=== PATIENT | female | born 2000 | race Caucasian/White ===

== ENCOUNTER 2021-02-02 13:12 | Emergency (ER) | payer OTHER, SELFPAY ==
[2021-02-02 13:32] VITALS: BP 114/73; PULSE 83; RESP 16; TEMP 36.7; O2SAT 98; BMI 25.8
--- NOTE | 2021-02-02 13:47 | US_ITS ---
WS: [id number] INDICATION: Appendicitis TECHNIQUE: Ultrasound right lower quadrant FINDINGS: Ultrasound right lower quadrant performed. Gas-filled bowel loops visualized. Appendix is n ot visualized. No visualized noncompressible bowel loops. No free fluid. US/US appendix [id number] IMPRESSION: Gas-filled bowel loops visualized in the right lower quadrant. Appe ndix is not visualized.
--- NOTE | 2021-02-02 13:49 | W.ED.FEMALGU ---
HPI - Female Genitourinary General: Chief complaint: Urogenital-Female Stated complaint: right lower abd pain, 15 weeks Time Seen by Provider: 02/02/21 13:38 Source: patient Mode of arrival: ambulatory Limitations: no limitations History of Present Illness: HPI Narrative: 20-year-old female who is currently 15 weeks . She states she has had nausea and vomiting throughout the but states today she started having some right side cramping with this. States pain is towards the right side upper abdomen and rates it a 5 out of 10. Denies any fever. Denies any worsening improving factors. Denies any worsening factors. She has no bleeding or discharge. Associated symptoms: Reports abdominal pain and nausea; Deny headache(s) Date of Last Menstrual Period: 10/08/20 Review of Systems Const: Denies: fever(s), chills, body aches or change in appetite Eyes: Denies: blurry vision or eye discomfort ENMT: Denies: throat pain or dental pain Card: Denies: chest pain Resp: Denies: dyspnea GI: Reports: abdominal pain, nausea and vomiting : Denies: dysuria Musc: Denies: neck pain or back pain Skin/Breast: Denies: rash Neuro: Denies: headache(s) Psych: Denies: depression Izaiah/Lymph: Denies: easy bruising All/Imm: Denies: urticaria [facility] ED Female Reproductive History: Date of last menstrual period: 10/08/20 Physical Exam Const: COMMON NORMALS: no acute distress, patient oriented x3 and healthy appearing HENMT: COMMON NORMALS: normocephalic and atraumatic HEAD & SCALP: normocephalic and atraumatic Eye: COMMON NORMALS: Equal, round and reactive pupils present and EOMs intact bilaterally PUPIL: Yes Equal, round and reactive pupils present Neck/C-Spine: COMMON NORMALS: full ROM and supple Chest: COMMONS NORMALS: normal inspection of the chest and normal palpation of entire chest wall Resp: COMMON NORMALS: normal respiratory effort, No retractions, No use of accessory muscles and clear to auscultation bilaterally AUSCULTATION: clear to auscultation bilaterally Cardio: COMMON NORMALS: regular rate, regular rhythm and No murmurs present (Cardio) RATE: regular rate RHYTHM: regular rhythm GI: COMMON NORMALS: Normal to inspection, nondistended, normoactive bowel sounds present, Soft to palpation, non-tender and no masses PALPATION: Yes Soft to palpation OTHER: no rlq tenderness no rebound Extremity: COMMON NORMALS: normal to inspection and full ROM Neuro: COMMON NORMALS: patient oriented x3, moves all extremities and no focal motor deficits Psych: COMMON NORMALS: mental status grossly normal, Normal thought process present and cooperative THOUGHT PROCESS: Normal thought process present Skin: COMMON NORMALS: no rashes or lesions noted and no wounds GENERAL SKIN EXAM: no rashes or lesions noted Course Vital Signs: Vital signs: Vital Signs Temperature 98.1 F 02/02/21 13:32 Pulse Rate 83 02/02/21 13:32 Respiratory Rate 14 02/02/21 17:03 Blood Pressure 114/73 02/02/21 13:32 Pulse Oximetry 99 02/02/21 17:03 MDM - Female MDM Narrative: Medical decision making narrative: Patient presents here with flank pain patient likely has a kidney stone. She had minimal dilatation of her ureter and mild hydronephrosis on ultrasound. Spoke to Dr. Jackson and will place patient on pain meds. We will send her home with a urine strainer as well. She feels much improved here and is currently pain-free. Patient feels better after hydration as well. She is to follow-up with her OB in 1 to 2 days return to ER if worsening. She understands and agrees to this plan. Lab Data: Labs: Lab Results 02/02/21 02/02/21 02/02/21 Range/Units 13:54 13:54 15:00 WBC 12.6 H (4.0-10.0) 10^3/ uL RBC 3.93 L (4.1-5.3) 10^6/u L Hgb 12.3 (11.5-15.3) g/dL Hct 34.1 L (37.0-47.0) % MCV 86.8 (81-99) fL MCH 31.3 (28.0-34.0) pg MCHC 36.1 H (30.0-36.0) g/dL RDW 11.8 L (12.1-15.1) % Plt Count 222 (130-400) 10^3/c mm MPV 10.6 H (7.4-10.4) fL Neut % (Auto) 87.2 % Lymph % (Auto) 8.8 % [place] % (Auto) 3.4 % Eos % (Auto) 0.0 % Baso % (Auto) 0.2 % Neut # (Auto) 10.96 H (1.8-7.7) 10^3/u L Lymph # (Auto) 1.1 (0.8-4.8) 10^3/u L [place] # (Auto) 0.4 (0.2-0.9) 10^3/u L Eos # (Auto) 0.0 (0.0-0.8) 10^3/u L Baso # (Auto) 0.0 (0.0-0.1) 10^3/u L Nucleated RBC % (a uto) 0 % Nucleated RBCs # 0.0 /100WBC Sodium 135 L (136-145) mmol/L Potassium 3.1 L (3.5-5.1) mmol/L Chloride 103 (98-107) mmol/L Carbon Dioxide 14 L (22-29) mmol/L Anion Gap 21.1 H (5-19) BUN 4 L (6-20) mg/dL Creatinine 0.6 (0.5-0.9) mg/dL GFR Calculation 125.0 (90-130) mL/min Glucose 138 H (65-115) mg/dL Calculated Osmolal ity 279 L (285-295) mOsm/k g Calcium 8.5 (8.5-10.5) mg/dL Total Bilirubin 0.5 (0.15-1.2) mg/dL AST 18 (0-32) U/L ALT 14 (0-33) U/L Alkaline Phosphata se 45 (35-105) IU/L Total Protein 6.9 (6.6-8.7) g/dL Albumin 4.0 (3.5-5.2) g/dL Globulin 2.9 (1.3-4.6) g/dL Lipase 22 (13-60) U/L Urine Color Yellow (Yellow) Urine Appearance Cloudy (CLEAR) Urine pH 5 (5-7) Ur Specific Gravit y 1.020 (1.005-1.030) Urine Protein Trace (Negative) Urine Glucose (UA) 1+ (Normal) Urine Ketones 3+ H (Negative) Urine Blood 3+ H (Negative) Urine Nitrate Negative (Negative) Urine Bilirubin Neg (Negative) Urine Urobilinogen Norm (Negative) mg/dL Ur Leukocyte Alejandra ase Negative (Negative) Urine RBC Too numerous to c nt H (0-2) /hpf Urine WBC 0-4 H (0-5) /hpf Ur Squamous Epith Cells 0-4 H (0-5) /hpf Amorphous Sediment Not Reportable Urine Bacteria 2+ H (NONE) /hpf Discharge Plan Discharge Patient Disposition: Home Clinical Impression: Kidney stone Vomiting Qualifiers: Vomiting type: unspecified Vomiting Intractability: non-intractable Nausea presence: with nausea Qualified Code(s): R11.2 - Nausea with vomiting, unspecified Condition: Stable Prescriptions: New hydrocodone-acetaminophen 5-325 mg tablet 1 tab PO Q6H PRN (Reason: pain) Qty: 14 RF: 0 cephalexin 500 mg capsule 500 mg PO TID 7 Days Qty: 21 RF: 0 Reglan 10 mg tablet 10 mg PO Q6H PRN (Reason: nausea and vomiting) Qty: 20 RF: 0 No Action progesterone micronized 200 mg capsule 200 mg PO BEDTIME MDD see pharmacy comment RF: 0 Discharge Orders: Discharge ED (Routine); Ordered 02/02/21 Ordered By: Mandeep Carvalho Referrals: Jeannie Melchor MD [Primary Care Provider] - Discharge Diet: Advance as tolerated Discharge Activity: Resume usual activity Patient Instructions: Opioid Safety Coding Level of Care Code ED Gold Assayer for Chg Fwd Exam Comprehensive
[2021-02-02 14:09] LABS: Basophils % 0.2 %; Hematocrit 34.1 % (37.0-47.0); Hemoglobin 12.3 g/dL (11.5-15.3); Lymphocytes # 1.1 10^3/uL (0.8-4.8); Lymphocytes % 8.8 %; Mean Corpuscular HGB Conc 36.1 g/dL (30.0-36.0); Mean Corpuscular Hemoglobin 31.3 pg (28.0-34.0); Mean Corpuscular Volume 86.8 fL (81-99); Mean Platelet Volume 10.6 fL (7.4-10.4); Monocytes # 0.4 10^3/uL (0.2-0.9); Monocytes % 3.4 %; Neutrophils # 10.96 10^3/uL (1.8-7.7); Neutrophils % 87.2 %; Nucleated Red Blood Cells % 0 %; Platelet Count 222 10^3/cmm (130-400); Red Blood Count 3.93 10^6/uL (4.1-5.3); Red Cell Distribution Width 11.8 % (12.1-15.1); White Blood Count 12.6 10^3/uL (4.0-10.0)
[2021-02-02 14:37] LABS: Alanine Aminotransferase 14 U/L (0-33); Alkaline Phosphatase 45 IU/L (35-105); Anion Gap 21.1 (5-19); Aspartate Amino Transferase 18 U/L (0-32); Blood Urea Nitrogen 4 mg/dL (6-20); Calcium 8.5 mg/dL (8.5-10.5); Carbon Dioxide 14 mmol/L (22-29); Chloride 103 mmol/L (98-107); Globulin 2.9 g/dL (1.3-4.6); Glucose 138 mg/dL (65-115); Lipase 22 U/L (13-60); Osmolality Calculated 279 mOsm/kg (285-295); Potassium 3.1 mmol/L (3.5-5.1); Sodium 135 mmol/L (136-145); Total Bilirubin 0.5 mg/dL (0.15-1.2); Total Protein 6.9 g/dL (6.6-8.7)
[2021-02-02] MEDS: sodium chloride 0.9% 1,000 ML 999 ML IV ×3 (15:23→17:06)
[2021-02-02] MEDS: diphenhydrAMINE 50 mg/mL SDV 1mL IVP (15:23)
[2021-02-02] MEDS: metoclopramide 5 mg/mL SDV 2 mL 10 MG IVP (15:23)
--- NOTE | 2021-02-02 15:34 | PC.NURSE ---
pt sleeping at this time. still in vertical.
--- NOTE | 2021-02-02 15:37 | PC.NURSE ---
normal saline running at this time
[2021-02-02 15:47] LABS: Add Urine Microscopic? YES; Bilirubin Urine Neg (Negative); Blood Urine 3+ (Negative); Glucose Urine UA 1+ (Normal); Ketones Urine 3+ (Negative); Leukocyte Esterase Urine Negative (Negative); Nitrate Urine Negative (Negative); Protein Urine Trace (Negative); Urine Appearance Cloudy (CLEAR); Urine Color Yellow (Yellow); Urobilinogen Urine Norm (Negative); pH Urine 5 (5-7)
[2021-02-02 15:51] LABS: RBC Urine TOO NUMEROUS TO CNT /hpf (0-2); Squamous Epithelial Cell Urine 0-4 /hpf (0-5); WBC Urine 0-4 /hpf (0-5)
[2021-02-02 15:52] LABS: Add Urine Culture? Yes; Bacteria Urine 2+ /hpf
--- NOTE | 2021-02-02 16:02 | USR_ITS ---
PROCEDURE INFORMATION: Exam: US Retroperitoneal; Complete; Kidneys and Bladder Exam date and time: 02/02/2021 4:02 PM Age: 20 years old Clinical indication: Abdominal pain; Flank; Right; ; Additional info: Right flank pain TECHNIQUE: Imaging protocol: Real-time ultrasound of the retroperitoneum with image documentation. Complete exam focused on the kidneys and bladder. COMPARISON: US Abdomen* [id number] 01/15/2017 9:21 AM FINDINGS: Right kidney: Unremarkable right renal size. Unremarkable right renal parenchyma. Mild dilation of the right renal collecting system. Small echogenic foci within right renal upper pole calices which may represent small stones. No perinephric fluid collection. Left kidney: Normal. No stones. No hydronephrosis. Urinary bladder: Unremarkable. US/US renal BI* [id number] IMPRESSION: Mild dilation of the right renal collecting system. Suspicion for small echogenic nonobstructing stones within the intrarenal collecting system. A distal obstructing lesion is not confidently visualized sonographically but cannot be excluded.
[2021-02-02 17:03] VITALS: RESP 14; O2SAT 99
[2021-02-02] MEDS: morphine 4 mg/mL SDV 1 mL IVP (17:03)
[2021-02-02 18:11] VITALS: BP 129/70; PULSE 78; RESP 14; TEMP 36.8; O2SAT 99
== END 2021-02-02 18:00 | disposition home or self-care (01) ==
PROVIDERS: Emergency Provider Emergency Medicine; PCP Family Medicine
DX: O26.892 Other specified pregnancy related conditions, second trimester (principal); N20.0 Calculus of kidney; R11.2 Nausea with vomiting, unspecified; Z3A.15 15 weeks gestation of pregnancy
CPT/HCPCS: 76705; 76770; 80053; 81001; 83690; 85025; 87086; 96361; 96374; 96375; 99284; J1200; J2270; J2765; J7030

== ENCOUNTER 2021-07-21 14:47 | Emergency (ER) | payer OTHER, SELFPAY ==
[2021-07-21 15:11] VITALS: BP 127/88; PULSE 80; RESP 16; TEMP 36.7; O2SAT 98
--- NOTE | 2021-07-21 15:11 | ECG_ITS ---
[facility] Test Date: 2021-07-21 Pat Name: Norma Canales Department: Room: Gender: Female Customs Broker: : 2000 Requested By: Lana Quintanilla Order Number: [id number] Reading MD: MAGALI TAYLOR Measurements Intervals [place] Rate: 80 P: 61 [place]: 158 QRS: 46 QRSD: 88 T: 29 QT: 354 QTc: 408 Interpretive Statements SINUS RHYTHM WITH SINUS ARRHYTHMIA No previous ECG available for comparison Electronically Signed On 07-22-2021 17:47:09 STEEL FIXER by MAGALI TAYLOR [id number]
--- NOTE | 2021-07-21 15:11 | XR_ITS ---
WS: [id number] PORTABLE CHEST HISTORY: chest pain COMPARISON: None available. Lungs are clear and well expanded. No pleural effusion or pneumothorax. Cardiac size: Normal. Mediastinum/Aorta: Normal mediastinum. No osseous abnormality seen. XR/XR chest 1V portable [id number] IMPRESSION: Unremarkable portable chest.
[2021-07-21 15:53] VITALS: BP 127/84; PULSE 88; RESP 21; O2SAT 97
--- NOTE | 2021-07-21 16:04 | PC.NURSE ---
PATIENT PLACED ON CONTINUOUS BEDSIDE CARDIAC, O2 AND BP MONITOR
[2021-07-21 16:07] LABS: Basophils % 0.3 %; Eosinophils # 0.2 10^3/uL (0.0-0.8); Eosinophils % 1.7 %; Hematocrit 39.6 % (37.0-47.0); Hemoglobin 13.6 g/dL (11.5-15.3); Lymphocytes # 1.4 10^3/uL (0.8-4.8); Lymphocytes % 14.9 %; Mean Corpuscular HGB Conc 34.3 g/dL (30.0-36.0); Mean Corpuscular Hemoglobin 32.6 pg (28.0-34.0); Mean Platelet Volume 10.1 fL (7.4-10.4); Monocytes # 0.5 10^3/uL (0.2-0.9); Monocytes % 5.6 %; Neutrophils # 7.02 10^3/uL (1.8-7.7); Neutrophils % 76.7 %; Nucleated Red Blood Cells % 0 %; Platelet Count 261 10^3/cmm (130-400); Red Blood Count 4.17 10^6/uL (4.1-5.3); Red Cell Distribution Width 13.2 % (12.1-15.1); White Blood Count 9.2 10^3/uL (4.0-10.0)
[2021-07-21 16:36] LABS: D Dimer 1.05 ug/mIFEU (0-0.59)
[2021-07-21 16:37] LABS: Anion Gap 16.5 (5-19); Blood Urea Nitrogen 10 mg/dL (6-20); Calcium 9.6 mg/dL (8.5-10.5); Carbon Dioxide 24 mmol/L (22-29); Chloride 101 mmol/L (98-107); Creatinine Clr Calc Pharmacy 122.0519; Glomerular Filtration Rate 89.7 mL/min (90-130); Glucose 81 mg/dL (65-115); Osmolality Calculated 284 mOsm/kg (285-295); Potassium 3.5 mmol/L (3.5-5.1); Sodium 138 mmol/L (136-145)
[2021-07-21 16:59] VITALS: BP 131/78; PULSE 86; RESP 17; O2SAT 98
--- NOTE | 2021-07-21 17:11 | CTR_ITS ---
PROCEDURE INFORMATION: Exam: CTA Chest With Contrast Exam date and time: 07/21/2021 5:11 PM Age: 20 years old Clinical indication: Shortness of breath; Patient HX: SOB; Additional info: Eval for pe TECHNIQUE: Imaging protocol: Computed tomographic angiography of the chest with contrast. 3D rendering (Not supervised by radiologist): MIP and/or 3D reconstructed images were created by the technologist. Radiation optimization: All CT scans at this facility use at least one of these dose optimization techniques: automated exposure control; mA and/or kV adjustment per patient size (includes targeted exams where dose is matched to clinical indication); or iterative reconstruction. Contrast material: OMNI 350; Contrast volume: 78 ml; Contrast route: INTRAVENOUS (IV); COMPARISON: CR XR chest 1V portable [id number] 07/21/2021 3:22 PM RADIATION DOSE METRICS: Total DLP (mGy-cm): 525.03 FINDINGS: Pulmonary arteries: No filling defects in the pulmonary arteries to suggest pulmonary embolism. Aorta: No evidence for aortic aneurysm or aortic dissection. Trachea: Tracheobronchial structures are patent. Lungs: Lungs are clear bilaterally. No pulmonary parenchymal nodules or masses. Pleural spaces: No pneumothorax. No pleural effusion. Heart: No cardiomegaly. No pericardial effusion. Esophagus: The esophagus is unremarkable. Mediastinal space: No mediastinal hematoma. No pneumomediastinum. Lymph nodes: No lymphadenopathy. Liver: The visualized liver is unremarkable. Pancreas: The visualized pancreas is unremarkable. No pancreatic ductal dilatation. Spleen: The visualized spleen is unremarkable. Adrenal glands: The visualized right and left adrenal glands are unremarkable. Kidneys and ureters: The visualized right and left kidneys are unremarkable. Bones/joints: No acute fracture. No dislocation. Soft tissues: No acute abnormality in the extrathoracic soft tissues. CT/CT angio chest PE protcl [id number] IMPRESSION: 1. No evidence for pulmonary embolism. 2. No acute cardiopulmonary process.
--- NOTE | 2021-07-21 17:23 | W.ED.GENADLT ---
HPI - General Adult General: Chief complaint: Chest Pain Stated complaint: CP/HAD BABY 2 DAYS AGO Time Seen by Provider: 07/21/21 15:16 History of Present Illness: CC: Chest Pain HPI: This is a [20] yo patient hx of recent and vaginal delivery 3 days ago presenting to the ED complaining of acute sudden onset intermittent chest tightness since 1pm . No associated with shortness of breath, chest pain or dyspnea on exertion. Pain is not tearing in nature and does not radiate to the back. Pain not associated with vomiting or PO intake. Denies any recent sympathomimetic drug use. Patient denies any cough. Denies palpitations, dysphagia, diaphoresis, radiation of pain to bilateral arms, jaw. Denies F/N/V/D. Patient denies any recent immobility, surgery, unilateral leg swelling, or prior PE. Patient denies any orthopnea. Onset: today Duration: episodic chest pain lasting for a few minutes at a time Location: home Severity: mild/moderate Associated symptoms: Reports chest pain; Deny dyspnea, nausea, rash, palpitations or vomiting Review of Systems Const: Denies: fever(s) or chills Eyes: Denies: change in vision ENMT: Denies: mouth pain Card: Reports: chest pain; Denies: palpitations Resp: Denies: dyspnea or non-productive cough GI: Denies: abdominal pain, nausea, vomiting or diarrhea : Denies: dysuria Musc: Denies: extremity pain Skin/Breast: Denies: rash or new lesions Neuro: Denies: weakness in extremities Psych: Reports: other (Normal mood) Izaiah/Lymph: Denies: easy bruising [facility] ED PFSH: Medical History (Updated 07/21/21 @ 17:27 by Lana Quintanilla MD) Social History (Updated 07/21/21 @ 17:24 by Lana Quintanilla MD) Smoking and tobacco status: never smoked Alcohol intake: never Female Reproductive History: Date of last menstrual period: 10/08/20 Physical Exam Const: COMMON NORMALS: alert HENMT: COMMON NORMALS: atraumatic HEAD & SCALP: atraumatic MOUTH: moist mucous membranes not abnormal Eye: COMMON NORMALS: EOMs intact bilaterally and conjunctivae normal CONJUNCTIVA: Yes conjunctivae normal Neck/C-Spine: COMMON NORMALS: full ROM and supple Resp: COMMON NORMALS: normal respiratory effort and clear to auscultation bilaterally AUSCULTATION: clear to auscultation bilaterally Cardio: COMMON NORMALS: regular rate RATE: regular rate GI: COMMON NORMALS: Soft to palpation and non-tender PALPATION: Yes Soft to palpation Extremity: COMMON NORMALS: full ROM Neuro: SENSORIUM/ORIENTATION: Yes alert MOTOR EXAM: No Abnormal motor strength present and Other motor observations present (no focal motor deficits) Psych: COMMON NORMALS: speech normal SPEECH: Yes normal speech MOOD & AFFECT: Yes euthymic mood Course Vital Signs: Vital signs: Vital Signs Temperature 98.1 F 07/21/21 15:11 Pulse Rate 68 07/21/21 19:05 Respiratory Rate 18 07/21/21 19:05 Blood Pressure 123/87 07/21/21 19:05 Pulse Oximetry 98 07/21/21 19:05 MDM - General Adult Medical Decision Making [20]yo patient w/ hx of recent presenting to the ED with evaluation of new onset of intermittent chest pain today. HDS, pulse 2+ radially bilaterally, no signs of fluid overload, AAOx3, neuro exam intact. Given History and Exam today I have no suspicion for ACS, Pneumothorax, Pneumonia, Pulmonary Embolus, Tamponade, Aortic Dissection or other emergent problems as a cause for this presentation. Currently chest pain free. Workup: ECG, CXR, CBC, BMP, Troponin Findings: ECG: No overt evidence of STEMI, hyperacute T waves, localizable STD or T wave inversions. No evidence of Brugada?s sign, delta wave, epsilon wave, significantly prolonged QTc, or malignant arrhythmia. No Q waves. Other Labs unremarkable for emergent problems. CXR: Without PTX, PNA, or widened mediastinum Last Stress Test: never Last Heart Catheterization: never HEART Score: 0 Dimer elevated, will order CTA chest [6:30pm] On reassessment, the patient is HDS, no complaints of persistent chest pain in the ED after evaluation. ECG is non-ischemic. Workup today is unremarkable. Doubt ACS/PE or other emergent causes of chest pain. CTA negative for any PE Rx: Tylenol 500mg Q6Hrs x 4 days PRN pain Disposition: Discharge. Strict return precautions discussed with the patient with full understanding. Advised patient to follow up promptly with a primary care provider in 24-48 hrs if the patient has persistent symptoms. Given return instructions for any crushing/tearing chest pain, focal weakness, syncope or any new or concerning issues. Lab Data : 07/21/21 15:56 07/21/21 15:56 Radiology Impressions Chest X-Ray 07/21/21 15:11 IMPRESSION: Unremarkable portable chest. Chest CTA 07/21/21 17:11 IMPRESSION: 1. No evidence for pulmonary embolism. 2. No acute cardiopulmonary process. Laboratory Results WBC 9.2 10^3/uL (4.0-10.0) 07/21/21 15:56 RBC 4.17 10^6/uL (4.1-5.3) 07/21/21 15:56 Hgb 13.6 g/dL (11.5-15.3) 07/21/21 15:56 Hct 39.6 % (37.0-47.0) 07/21/21 15:56 MCV 95.0 fl (81-99) 07/21/21 15:56 MCH 32.6 pg (28.0-34.0) 07/21/21 15:56 MCHC 34.3 g/dL (30.0-36.0) 07/21/21 15:56 RDW 13.2 % (12.1-15.1) 07/21/21 15:56 Plt Count 261 10^3/cmm (130-400) 07/21/21 15:56 MPV 10.1 fL (7.4-10.4) 07/21/21 15:56 Neut % (Auto) 76.7 % 07/21/21 15:56 Lymph % (Auto) 14.9 % 07/21/21 15:56 [place] % (Auto) 5.6 % 07/21/21 15:56 Eos % (Auto) 1.7 % 07/21/21 15:56 Baso % (Auto) 0.3 % 07/21/21 15:56 Neut # (Auto) 7.02 10^3/uL (1.8-7.7) 07/21/21 15:56 Lymph # (Auto) 1.4 10^3/uL (0.8-4.8) 07/21/21 15:56 [place] # (Auto) 0.5 10^3/uL (0.2-0.9) 07/21/21 15:56 Eos # (Auto) 0.2 10^3/uL (0.0-0.8) 07/21/21 15:56 Baso # (Auto) 0.0 10^3/uL (0.0-0.1) 07/21/21 15:56 Nucleated RBC % (auto) 0 % 07/21/21 15:56 Nucleated RBCs # 0.0 /100WBC 07/21/21 15:56 D-Dimer 1.05 ug/mIFEU (0-0.59) H 07/21/21 15:56 Sodium 138 mmol/L (136-145) 07/21/21 15:56 Potassium 3.5 mmol/L (3.5-5.1) 07/21/21 15:56 Chloride 101 mmol/L (98-107) 07/21/21 15:56 Carbon Dioxide 24 mmol/L (22-29) 07/21/21 15:56 Anion Gap 16.5 (5-19) 07/21/21 15:56 BUN 10 mg/dL (6-20) 07/21/21 15:56 Creatinine 0.8 mg/dL (0.5-0.9) 07/21/21 15:56 GFR Calculation 89.7 mL/min (90-130) L 07/21/21 15:56 Glucose 81 mg/dL (65-115) 07/21/21 15:56 Calculated Osmolality 284 mOsm/kg (285-295) L 07/21/21 15:56 Calcium 9.6 mg/dL (8.5-10.5) 07/21/21 15:56 Imaging Data Other Imaging: Radiologist's impression: Launch?Image [address] [id number] [address] Scan Report Signed Patient: Norma Canales Unit #: [id number] : 2000 Age/Sex: 20 / F ADM Date: 07/21/21 Loc: ER Room/Bed: Attending Dr: Ordering Provider/Ordering MD: Lana Quintanilla MD Date of Service: 07/21/21 Procedure(s): CT angio chest PE protcl [id number] Accession Number(s): [id number] Report Number: [id number] PROCEDURE INFORMATION: Exam: CTA Chest With Contrast Exam date and time: 07/21/2021 5:11 PM Age: 20 years old Clinical indication: Shortness of breath; Patient HX: SOB; Additional info: Eval for pe TECHNIQUE: Imaging protocol: Computed tomographic angiography of the chest with contrast. 3D rendering (Not supervised by radiologist): MIP and/or 3D reconstructed images were created by the technologist. Radiation optimization: All CT scans at this facility use at least one of these dose optimization techniques: automated exposure control; mA and/or kV adjustment per patient size (includes targeted exams where dose is matched to clinical indication); or iterative reconstruction. Contrast material: OMNI 350; Contrast volume: 78 ml; Contrast route: INTRAVENOUS (IV);? COMPARISON: CR XR chest 1V portable [id number] 07/21/2021 3:22 PM RADIATION DOSE METRICS: Total DLP (mGy-cm): 525.03 FINDINGS: Pulmonary arteries: No filling defects in the pulmonary arteries to suggest pulmonary embolism. Aorta: No evidence for aortic aneurysm or aortic dissection. Trachea: Tracheobronchial structures are patent. Lungs: Lungs are clear bilaterally. No pulmonary parenchymal nodules or masses. Pleural spaces: No pneumothorax. No pleural effusion. Heart:? No cardiomegaly. No pericardial effusion. Esophagus: The esophagus is unremarkable. Mediastinal space: No mediastinal hematoma. No pneumomediastinum. Lymph nodes: No lymphadenopathy. Liver: The visualized liver is unremarkable. Pancreas: The visualized pancreas is unremarkable. No pancreatic ductal dilatation. Spleen: The visualized spleen is unremarkable. Adrenal glands: The visualized right and left adrenal glands are unremarkable. Kidneys and ureters: The visualized right and left kidneys are unremarkable. Bones/joints: No acute fracture. No dislocation. Soft tissues: No acute abnormality in the extrathoracic soft tissues. CT/CT angio chest PE protcl [id number] IMPRESSION: 1. No evidence for pulmonary embolism. 2. No acute cardiopulmonary process. ? Dictated By: Elida Urias MD Signed By: Elida Urias MD Signed Date/Time: 07/21/21 1836 DD/ 171 Discharge Plan Discharge Patient Disposition: Home Clinical Impression: Chest pain Prescriptions: New acetaminophen 500 mg tablet 500 mg PO Q6H PRN (Reason: pain) 5 Days Qty: 20 0RF No Action progesterone micronized 200 mg capsule 200 mg PO BEDTIME MDD see pharmacy comment 0RF hydrocodone-acetaminophen 5-325 mg tablet 1 tab PO Q6H PRN (Reason: pain) Qty: 14 0RF Reglan 10 mg tablet 10 mg PO Q6H PRN (Reason: nausea and vomiting) Qty: 20 0RF Discharge Orders: Discharge ED (Routine); Ordered 07/21/21 Ordered By: Lana Quintanilla Referrals: Jeannie Melchor MD [Primary Care Provider] - Discharge Diet: Advance as tolerated Discharge Activity: Increase activity as tolerated Patient Instructions: Chest Pain (ED) Activity Restrictions/Additional Instructions: Come back to the emergency room if your chest pain worsens, have any fever or chills, worsening shortness of breath, worsening exertional lightheadedness, or any new or concerning complaints. Coding Level of Care Code ED Production Support Developer for [place] [employer] Exam Comprehensive
[2021-07-21] MEDS: iohexol 350 mg/mL 100 mL Btl IV (18:09)
[2021-07-21 18:37] VITALS: BP 123/87; PULSE 68; RESP 18; O2SAT 98
[2021-07-21 19:05] VITALS: BP 123/87; PULSE 68; RESP 18; O2SAT 98
== END 2021-07-21 19:06 | disposition home or self-care (01) ==
PROVIDERS: Emergency Provider Emergency Medicine; PCP Family Medicine
DX: R07.9 Chest pain, unspecified (principal)
CPT/HCPCS: 71045; 71275; 80048; 85025; 85378; 93005; 99284; Q9967

== ENCOUNTER 2023-11-09 08:36 | Emergency (ER) | payer OTHER, SELFPAY ==
[2023-11-09 08:42] VITALS: BP 143/83; PULSE 86; RESP 17; TEMP 36.8; O2SAT 99; BMI 28.1
--- NOTE | 2023-11-09 09:07 | W.ED.ABDPA2 ---
HPI - Abdominal Pain General: Chief Complaint: Abdominal Pain Stated Complaint: rt lower abd pain Time Seen by Provider: 11/09/23 08:47 Source: patient Mode of arrival: ambulatory History of Present Illness: 22-year-old female presents emergency room complaining of right-sided pain radiating to her back. She is currently 13 weeks she has had frequency and urgency with urination. No vaginal bleeding. was confirmed intrauterine [place] where she gets her obstetrical care. She has been taking micronized progesterone and vitamins. No fever sweats or chills no hematuria. History of previous cholecystectomy MD elicited complaint: abdominal pain Location: R flank Quality: aching Associated Symptoms: Denies chills, dysuria and fever(s) Review of Systems Const: Denies: fever(s) or chills Card: Denies: chest pain Resp: Denies: dyspnea GI: Denies: abdominal pain : Denies: dysuria, urinary frequency or urinary urgency Musc: Denies: neck pain or back pain Skin/Breast: Denies: rash PFSH ED PFSH: Medical History (Updated 11/09/23 @ 11:49 by Markel Oleary DO) Kidney stone Surgical History (Updated 11/09/23 @ 09:22 by Markel Oleary DO) Hx of cholecystectomy Social History Smoking and tobacco/nicotine status: never used tobacco/nicotine Alcohol intake: never Substance/Drug Use: never Physical Exam Const: COMMON NORMALS: no acute distress GENERAL APPEARANCE: cooperative and comfortable ORIENTATION/CONSCIOUSNESS: Yes awake, Yes oriented to person, Yes oriented to place and Yes oriented to time HENMT: COMMON NORMALS: normocephalic, atraumatic and hearing grossly normal bilaterally HEAD & SCALP: normocephalic and atraumatic Resp: COMMON NORMALS: normal respiratory effort, No retractions, No use of accessory muscles and clear to auscultation bilaterally AUSCULTATION: clear to auscultation bilaterally Cardio: COMMON NORMALS: regular rate, regular rhythm and No murmurs present (Cardio) RATE: regular rate RHYTHM: regular rhythm GI: COMMON NORMALS: Soft to palpation and No hepatosplenomegaly present AUSCULTATION: Yes normoactive bowel sounds PALPATION: Yes Soft to palpation, No Tenderness to palpation present (GI), No Guarding due to palpation present (GI) and Yes No hepatosplenomegaly present Extremity: COMMON NORMALS: normal to inspection, capillary refill normal, no clubbing, cyanosis or edema, no calf tenderness and no pedal edema Neuro: SENSORIUM/ORIENTATION: Yes oriented to person, Yes oriented to place and Yes oriented to time Skin: COMMON NORMALS: no rashes or lesions noted GENERAL SKIN EXAM: no rashes or lesions noted Course Vital Signs: Vital signs: Vital Signs Temperature 98.3 F 11/09/23 08:42 Pulse Rate 62 11/09/23 11:28 Respiratory Rate 17 11/09/23 08:42 Blood Pressure 143/83 11/09/23 11:28 Pulse Oximetry 97 11/09/23 11:28 Oxygen Delivery Me thod Room Air 11/09/23 11:28 MDM - Abdominal Pain Medical Decision Making Patient has a history of nephrolithiasis she feels like this is a recurrent stone ultrasound did not confirm there is no hydronephrosis or hydroureter. She did have 25-31 red blood cells per high-power field. Previous ultrasounds from her previous did show hydronephrosis hydroureter and significant stones were imaged on the ultrasound. Because of her early we will be able to get further imaging. At this point her pain is fairly well-controlled. Will discharge the patient home with hydrocodone and antiemetics maintain adequate fluid intake. Return if has uncontrolled pain contact her OB early next week as soon as she is able to and relay the symptoms and evaluation done here in the emergency room. Medical Records I reviewed the patient's medical records. Lab Data I reviewed the patient's lab results. 11/09/23 09:10 11/09/23 09:10 Labs/Radiology: Radiology Impressions Renal Ultrasound 11/09/23 10:45 IMPRESSION: 1. No hydronephrosis or visible stones. 2. Mild asymmetric right renal atrophy with cortical thinning. Findings are new since 02/02/2021. Findings are nonspecific. Differential diagnosis includes chronic sequelae of remote obstruction or infection, vascular disease, vesicoureteral reflux or other medical renal disease. Laboratory Results WBC 5.53 10^3/uL (3.29-11.43) 11/09/23 09:10 RBC 4.23 10^6/uL (3.85-5.65) 11/09/23 09:10 Hgb 13.50 g/dL (11.27-16.99) 11/09/23 09:10 Hct 38.7 % (36-47) 11/09/23 09:10 MCV 91.5 fl (85-98) 11/09/23 09:10 MCH 31.9 pg (27-33) 11/09/23 09:10 MCHC 34.9 g/dL (30-55) 11/09/23 09:10 RDW 12.7 % (12.1-15.1) 11/09/23 09:10 Plt Count 208 10^3/cmm (157-399) 11/09/23 09:10 MPV 10.6 fL (7.4-10.4) H 11/09/23 09:10 Neut % (Auto) 73.2 % 11/09/23 09:10 Lymph % (Auto) 17.9 % 11/09/23 09:10 [place] % (Auto) 7.4 % 11/09/23 09:10 Eos % (Auto) 0.4 % 11/09/23 09:10 Baso % (Auto) 0.7 % 11/09/23 09:10 Neut # (Auto) 4.05 10^3/uL (1.8-7.7) 11/09/23 09:10 Lymph # (Auto) 1.0 10^3/uL (0.8-4.8) 11/09/23 09:10 [place] # (Auto) 0.4 10^3/uL (0.2-0.9) 11/09/23 09:10 Eos # (Auto) 0.0 10^3/uL (0.0-0.8) 11/09/23 09:10 Baso # (Auto) 0.0 10^3/uL (0.0-0.1) 11/09/23 09:10 Nucleated RBC % (auto) 0 % 11/09/23 09:10 Nucleated RBCs # 0.0 /100WBC 11/09/23 09:10 Sodium 135 mmol/L (136-145) L 11/09/23 09:10 Potassium 3.8 mmol/L (3.5-5.1) 11/09/23 09:10 Chloride 103 mmol/L (98-107) 11/09/23 09:10 Carbon Dioxide 21 mmol/L (22-29) L 11/09/23 09:10 Anion Gap 14.8 (5-19) 11/09/23 09:10 BUN 6 mg/dL (6-20) 11/09/23 09:10 Creatinine 0.5 mg/dL (0.5-0.9) 11/09/23 09:10 GFR Calculation 151.6 mL/min (90-130) H 11/09/23 09:10 Glucose 89 mg/dL (65-115) 11/09/23 09:10 Calculated Osmolality 277 mOsm/kg (285-295) L 11/09/23 09:10 Calcium 8.8 mg/dL (8.5-10.5) 11/09/23 09:10 Total Bilirubin 0.4 mg/dL (0.15-1.2) 11/09/23 09:10 AST 12 U/L (0-32) 11/09/23 09:10 ALT 12 U/L (0-33) 11/09/23 09:10 Alkaline Phosphatase 45 U/L (35-105) 11/09/23 09:10 Total Protein 6.4 g/dL (6.6-8.7) L 11/09/23 09:10 Albumin 3.9 g/dL (3.5-5.2) 11/09/23 09:10 Globulin 2.5 g/dL (1.3-4.6) 11/09/23 09:10 Lipase 26 U/L (13-60) 11/09/23 09:10 Ser , Semi-Qnt 79846.00 mIU/mL 11/09/23 09:10 Urine Color Yellow (Yellow) 11/09/23 09:53 Urine Appearance Sl hazy (CLEAR) A 11/09/23 09:53 Urine pH 6 (5-7) 11/09/23 09:53 Ur Specific [place] 1.010 (1.005-1.030) 11/09/23 09:53 Urine Protein Neg (Negative) 11/09/23 09:53 Urine Glucose (UA) Norm (Normal) 11/09/23 09:53 Urine Ketones 1+ (Negative) H 11/09/23 09:53 Urine Blood 3+ (Negative) H 11/09/23 09:53 Urine Nitrate Negative (Negative) 11/09/23 09:53 Urine Bilirubin Neg (Negative) 11/09/23 09:53 Urine Urobilinogen Norm mg/dL (Negative) 11/09/23 09:53 Ur Leukocyte Esterase Negative (Negative) 11/09/23 09:53 Urine RBC 25-40 /hpf (0-2) H 11/09/23 09:53 Urine WBC 0-4 /hpf (0-5) H 11/09/23 09:53 Ur Squamous Epith Cells 0-4 /hpf (0-5) H 11/09/23 09:53 Amorphous Sediment Not Reportable 11/09/23 09:53 Urine Bacteria Trace /hpf (NONE) 11/09/23 09:53 All radiology interpretation(s) finalized by discharge Discharge Plan Discharge Patient Disposition: Home Clinical Impression: Acute flank pain, History of nephrolithiasis, Condition: Stable Prescriptions: New hydrocodone-acetaminophen 5-325 mg tablet 1 tab PO Q6H PRN (Reason: pain) Qty: 20 0RF promethazine 25 mg tablet 25 mg PO Q6H PRN (Reason: nausea and vomiting) Qty: 20 0RF No Action progesterone micronized 200 mg capsule 200 mg PO BEDTIME MDD see pharmacy comment progesterone micronized 100 mg capsule 100 mg PO BEDTIME SUPERVISOR WHEEL SHOP Thyroid 60 mg tablet 60 mg PO QPM 28 mg iron- 800 mcg Tablet 1 tab PO QPM Discharge Orders: Discharge ED (Routine); Ordered 11/09/23 Ordered By: Markel Oleary Referrals: Jeannie Melchor MD [Primary Care Provider] - Discharge Diet: Usual diet Discharge Activity: Resume usual activity Patient Instructions: Opioid Safety, Pain Management Activity Restrictions/Additional Instructions: Thank you for choosing [facility] for your healthcare needs today. Please realize this is an emergency room and that we are providing you with a medical screening exam and this may not be complete and all inclusive of all the testing and or work up that you may need to determine your ailment or severity of your illness. It is very important that you follow up as instructed or that you return to the Emergency Department should you have concerns or if your condition changes or worsens in any way. You are seen today for right flank pain. You did have a small amount of red blood cells in your urine but no signs of infection. He would reported that the pain seems similar to what she had before in the past with kidney stones. Because of your first trimester we are limited in imaging options, ultrasound did not show dilation of the ureter or swelling of the kidney or any identifiable stones in the ureter. Because of your history and this pain similar to previous episodes recommend that you use nausea and pain medications as needed maintain good fluid intake. Contact your primary research test engine operator as soon as you are able on Saturday. If your pain changes or becomes uncontrollable or you develop other symptoms return to the emergency room and we will reevaluate. Coding Level of Care Code ED Orthodontic Assistant for [place] Gardner
[2023-11-09 09:14] LABS: Basophils % 0.7 %; Eosinophils % 0.4 %; Hematocrit 38.7 % (36-47); Lymphocytes % 17.9 %; Mean Corpuscular HGB Conc 34.9 g/dL (30-55); Mean Corpuscular Hemoglobin 31.9 pg (27-33); Mean Corpuscular Volume 91.5 fl (85-98); Mean Platelet Volume 10.6 fL (7.4-10.4); Monocytes # 0.4 10^3/uL (0.2-0.9); Monocytes % 7.4 %; Neutrophils # 4.05 10^3/uL (1.8-7.7); Neutrophils % 73.2 %; Nucleated Red Blood Cells % 0 %; Platelet Count 208 10^3/cmm (157-399); Red Blood Count 4.23 10^6/uL (3.85-5.65); Red Cell Distribution Width 12.7 % (12.1-15.1); White Blood Count 5.53 10^3/uL (3.29-11.43)
[2023-11-09 09:15] VITALS: BP 143/83; PULSE 71; O2SAT 98
[2023-11-09 09:35] LABS: Alanine Aminotransferase 12 U/L (0-33); Albumin Level 3.9 g/dL (3.5-5.2); Alkaline Phosphatase 45 U/L (35-105); Anion Gap 14.8 (5-19); Aspartate Amino Transferase 12 U/L (0-32); Blood Urea Nitrogen 6 mg/dL (6-20); Calcium 8.8 mg/dL (8.5-10.5); Carbon Dioxide 21 mmol/L (22-29); Chloride 103 mmol/L (98-107); Creatinine Clr Calc Pharmacy 196.9425; Globulin 2.5 g/dL (1.3-4.6); Glomerular Filtration Rate 151.6 mL/min (90-130); Glucose 89 mg/dL (65-115); Lipase 26 U/L (13-60); Osmolality Calculated 277 mOsm/kg (285-295); Potassium 3.8 mmol/L (3.5-5.1); Sodium 135 mmol/L (136-145); Total Bilirubin 0.4 mg/dL (0.15-1.2); Total Protein 6.4 g/dL (6.6-8.7)
[2023-11-09 09:57] VITALS: BP 143/83; PULSE 66; O2SAT 97
[2023-11-09 10:09] LABS: Add Urine Microscopic? YES; Bilirubin Urine Neg (Negative); Blood Urine 3+ (Negative); Glucose Urine UA Norm (Normal); Ketones Urine 1+ (Negative); Leukocyte Esterase Urine Negative (Negative); Nitrate Urine Negative (Negative); Protein Urine Neg (Negative); RBC Urine 25-40 /hpf (0-2); Squamous Epithelial Cell Urine 0-4 /hpf (0-5); Urine Appearance SL Hazy (CLEAR); Urine Color Yellow (Yellow); Urobilinogen Urine Norm (Negative); WBC Urine 0-4 /hpf (0-5); pH Urine 6 (5-7)
[2023-11-09 10:10] LABS: Add Urine Culture? Yes; Bacteria Urine TRACE /hpf
[2023-11-09 10:22] VITALS: BP 143/83; PULSE 68; O2SAT 97
--- NOTE | 2023-11-09 10:45 | USR_ITS ---
PROCEDURE INFORMATION: Exam: US Retroperitoneal; Complete; Kidneys and Bladder Exam date and time: 11/09/2023 11:23 AM Age: 22 years old Clinical indication: Abdominal pain; Flank; Right lower quadrant (rlq); ; Additional info: R flank pain TECHNIQUE: Imaging protocol: Real-time ultrasound of the retroperitoneum with image documentation. Complete exam focused on the kidneys and bladder. COMPARISON: US renal BI* [id number] 02/02/2021 4:34 PM FINDINGS: Right kidney: The right kidney demonstrates a mildly lobulated margin and diffusely thinned cortex. There is no hydronephrosis on the right. No visible stones. The right kidney measures 10.8 x 4.4 x 4.8 cm. Right renal volume is a proximally 120 cc. Left kidney: The left kidney demonstrates a mildly lobulated contour and is normal in size with normal cortical thickness. There is no hydronephrosis on the left. No visible stones. The left kidney measures 12.0 x 5.0 x 4.2 cm. Left renal volume is 131 cc. Aorta: The mid abdominal aorta measures 1.2 cm diameter. Urinary bladder: The urinary bladder is unremarkable. US/US renal BI* [id number] IMPRESSION: 1. No hydronephrosis or visible stones. 2. Mild asymmetric right renal atrophy with cortical thinning. Findings are new since 02/02/2021. Findings are nonspecific. Differential diagnosis includes chronic sequelae of remote obstruction or infection, vascular disease, vesicoureteral reflux or other medical renal disease.
[2023-11-09] MEDS: ondansetron 2 mg/ML SDV 2 mL 4 MG IVP (11:25)
[2023-11-09] MEDS: morphine 4 mg/mL SDV 1 mL 2 MG IVP (11:26)
[2023-11-09] MEDS: sodium chloride 0.9% 1,000 ML 999 ML IV (11:26)
[2023-11-09 11:28] VITALS: BP 143/83; PULSE 62; O2SAT 97
[2023-11-09 12:47] VITALS: BP 143/83; PULSE 62; RESP 17; TEMP 36.8; O2SAT 97
== END 2023-11-09 12:50 | disposition home or self-care (01) ==
PROVIDERS: Emergency Provider Family Medicine; PCP Family Medicine
DX: O99.891 Other specified diseases and conditions complicating pregnancy (principal); R10.31 Right lower quadrant pain; Z87.442 Personal history of urinary calculi; Z3A.13 13 weeks gestation of pregnancy
CPT/HCPCS: 76770; 80053; 81001; 83690; 84702; 85025; 87086; 96361; 96374; 96375; 99285; J2270; J2405; J7030

== ENCOUNTER 2023-12-26 10:29 | Emergency (ER) | payer OTHER, SELFPAY ==
[2023-12-26 10:53] VITALS: BP 106/71; PULSE 91; RESP 17; TEMP 36.6; O2SAT 100; BMI 27.3
--- NOTE | 2023-12-26 10:55 | ED_ITS ---
HPI - Abdominal Pain 2 General: Chief Complaint: Abdominal Pain Stated Complaint: Right side back and stomach pain Time Seen by Provider: 12/26/23 10:36 Source: patient Mode of arrival: ambulatory History of Present Illness: 23-year-old female presents to the emerg ency room with complaints of right flank pain. We have seen her a couple months ago at that time she was around 13 weeks gestation and she had a nephrolithiasis she was treated presumptively. Ultrasound was used at that time there was no hydronephrosis and no visible stones. We are unable to get further imaging because of her . She was treated presumptively seem to have passed stone is not having a recurrence of symptoms MD elicited complaint: abdominal pain Pertinent past history: other (Nephrolithiasis) Onset (ago): day(s) Pain Consistency: constant Location: R flank Quality: sharp Exacerbating factors: nothing Relieving factors: nothing Associated Symptoms: Reports nausea and poor appetite; Denies anorexia, belching, bloating, change in bowel habits, change in stool character, chills, coffee ground emesis, constipation, GI cramping, diarrhea, dyspepsia, dysuria, excessive flatus, fever(s), heartburn, hematochezia, hematuria, hematemesis, fecal incontinence, loose stools, melena, syncope and vomiting Review of Systems 2 Const: Denies: fever(s) or chills Card: Denies: chest pain or syncope Resp: Denies: dyspnea GI: Reports: nausea; Denies: vomiting, hematemesis, coffee ground emesis, heartburn, diarrhea, constipation, bloating, GI cramping, belching, excessive flatus, fecal incontinence, change in bowel habits, change in stool character, hematochezia or melena : Reports: flank pain; Denies: dysuria, urinary frequency, urinary urgency or hematuria Musc: Denies: neck pain or back pain Skin/Breast: Denies: rash PFSH ED 2 PFSH: Medical History Kidney stone Surgical History Hx of cholecystectomy Social History Smoking and tobacco/nicotine status: never used tobacco/nicotine Alcohol intake: never Substance/Drug Use: never Physical Exam 2 Const: GENERAL APPEARANCE: cooperative and comfortable O RIENTATION/CONSCIOUSNESS: Yes awake, Yes oriented to person, Yes oriented to place and Yes oriented to time HENMT: COMMON NORMALS: normocephalic, atraumatic and hearing grossly normal bilaterally HEAD & SCALP: normocephalic and atraumatic Resp: COMMON NORMALS: normal respiratory effort, No retractions, No use of accessory muscles and clear to auscultation bilaterally AUSCULTATION: clear to auscultation bilaterally Cardio: COMMON NORMALS: regular rate, regular rhythm and No murmurs present (Cardio) RATE: regular rate RHYTHM: regular rhythm GI: COMMON NORMALS: Soft to palpation and No hepatosplenomegaly present A USCULTATION: Yes normoactive bowel sounds PALPATION: Yes Soft to palpation, No Tenderness to palpation present (GI), No Guarding due to palpation present (GI) and Yes No hepatosplenomegaly present Extremity: COMMON NORMALS: normal to inspection, capillary refill normal, no clubbing, cyanosis or edema, no calf tenderness and no pedal edema Neuro: SENSORIUM/ORIENTATION: Yes oriented to person, Yes oriented to place and Yes oriented to time Skin: COMMON NORMALS: no rashes or lesions noted GENERAL SKIN EXAM: no rashes or lesions noted Course 2 Vital Signs: Vital signs: Vital Signs Temperature 97.8 F 12/26/23 10:53 Pulse Rate 88 12/26/23 13:15 Respiratory Rate 17 12/26/23 11:10 Blood Pressure 104/61 12/26/23 13:15 Pulse Oximetry 97 12/26/23 13:15 Oxygen Delivery Me thod Room Air 12/26/23 12:00 MDM - Abdominal Pain Medical Decision Making Some mild hydroureter right kidney has appearance of medullary sponge kidney. No identifiable stone. She does have a fair amount of blood in her urine. Has an equal number of white and red blood cells with some squamous cells. Discharge home with pain medications and nausea meds muscle Jenkins: A antibiotic for her for her bladder until culture comes back asked her to follow-up with her prototype machine operator in [place] to get a referral to urology. Medical Records I reviewed the patient's medical records. Lab Data I reviewed the patient's lab results. 12/26/23 11:01 12/26/23 11:01 Labs/Radiology: Radiology Impressions Renal Ultrasound 12/26/23 11:02 IMPRESSION: Mild right pelvocaliectasis. Laboratory Results WBC 10.44 10^3/uL (3.29-11.43) 12/26/23 11:01 RBC 3.89 10^6/uL (3.85-5.65) 12/26/23 11:01 Hgb 12.60 g/dL (11.27-16.99) 12/26/23 11:01 Hct 35.6 % (36-47) L 12/26/23 11:01 MCV 91.5 fl (85-98) 12/26/23 11:01 MCH 32.4 pg (27-33) 12/26/23 11:01 MCHC 35.4 g/dL (30-55) 12/26/23 11:01 RDW 12.7 % (12.1-15.1) 12/26/23 11:01 Plt Count 233 10^3/cmm (157-399) 12/26/23 11:01 MPV 10.1 fL (7.4-10.4) 12/26/23 11:01 Neut % (Auto) 84.3 % 12/26/23 11:01 Lymph % (Auto) 10.9 % 12/26/23 11:01 [place] % (Auto) 3.8 % 12/26/23 11:01 Eos % (Auto) 0.1 % 12/26/23 11:01 Baso % (Auto) 0.4 % 12/26/23 11:01 Neut # (Auto) 8.80 10^3/uL (1.8-7.7) H 12/26/23 11:01 Lymph # (Auto) 1.1 10^3/uL (0.8-4.8) 12/26/23 11:01 [place] # (Auto) 0.4 10^3/uL (0.2-0.9) 12/26/23 11:01 Eos # (Auto) 0.0 10^3/uL (0.0-0.8) 12/26/23 11:01 Baso # (Auto) 0.0 10^3/uL (0.0-0.1) 12/26/23 11:01 Nucleated RBC % (auto) 0 % 12/26/23 11:01 Nucleated RBCs # 0.0 /100WBC 12/26/23 11:01 Specimen Type Arterial 12/26/23 10:58 Sample Site Radial, left 12/26/23 10:58 ABG pH 7.43 (7.35-7.45) 12/26/23 10:58 ABG pCO2 29.9 mmHg (35-45) L 12/26/23 10:58 ABG pO2 111.0 mmHg (80.0-100.0) H 12/26/23 10:58 ABG PO2/FiO2 Ratio 528 12/26/23 10:58 ABG HCO3 19.8 mmol/L (22-26) L 12/26/23 10:58 ABG O2 Saturation 99.5 12/26/23 10:58 ABG Base Excess -3.5 mmol/L (-2.0-2.0) L 12/26/23 10:58 Bruce Test Pos 12/26/23 10:58 A-a O2 Gradient Not Reportable 12/26/23 10:58 Hematocrit 35.8 % (37-47) L 12/26/23 10:58 Hgb O2 Saturation 98.0 % (95-100) 12/26/23 10:58 Carboxyhemoglobin 1.1 %THgb (0.4-20.1) 12/26/23 10:58 Methemoglobin 0.3 % (0.4-1.5) L 12/26/23 10:58 Total Hemoglobin 11.7 g/dL (12-16) L 12/26/23 10:58 Sodium 136.0 mmol/L (131-143) 12/26/23 10:58 Potassium 3.4 mmol/L (3.5-5.0) L 12/26/23 10:58 Glucose 98.0 mg/dL (70-115) 12/26/23 10:58 Ionized Calcium 1.1 mmol/L (1.1-1.4) 12/26/23 10:58 O2 Delivery Device Room air 12/26/23 10:58 FiO2 21.0 % 12/26/23 10:58 Drum Stock Clerk ID [place] 12/26/23 10:58 Sodium 135 mmol/L (136-145) L 12/26/23 11:01 Potassium 3.5 mmol/L (3.5-5.1) 12/26/23 11:01 Chloride 100 mmol/L (98-107) 12/26/23 11:01 Carbon Dioxide 21 mmol/L (22-29) L 12/26/23 11:01 Anion Gap 17.5 (5-19) 12/26/23 11:01 BUN 8 mg/dL (6-20) 12/26/23 11:01 Creatinine 0.6 mg/dL (0.5-0.9) 12/26/23 11:01 GFR Calculation 121.8 mL/min (90-130) 12/26/23 11:01 Glucose 108 mg/dL (65-115) 12/26/23 11:01 Calculated Osmolality 279 mOsm/kg (285-295) L 12/26/23 11:01 Calcium 8.5 mg/dL (8.5-10.5) 12/26/23 11:01 Total Bilirubin 0.3 mg/dL (0.15-1.2) 12/26/23 11:01 AST 15 U/L (0-32) 12/26/23 11:01 ALT 10 U/L (0-33) 12/26/23 11:01 Alkaline Phosphatase 48 U/L (35-105) 12/26/23 11:01 Total Protein 7.3 g/dL (6.6-8.7) 12/26/23 11:01 Albumin 4.1 g/dL (3.5-5.2) 12/26/23 11:01 Globulin 3.2 g/dL (1.3-4.6) 12/26/23 11:01 HCG, Qual Positive (Negative) H 12/26/23 11:01 Urine Color Yellow (Yellow) 12/26/23 Unknown Urine Appearance Slightly cloudy (CLEAR) 12/26/23 Unknown Urine pH 6.5 (5-7) 12/26/23 Unknown Ur Specific [place] 1.005 (1.005-1.030) 12/26/23 Unknown Urine Protein Neg (Negative) 12/26/23 Unknown Urine Glucose (UA) Norm (Normal) 12/26/23 Unknown Urine Ketones 2+ (Negative) H 12/26/23 Unknown Urine Blood 3+ (Negative) H 12/26/23 Unknown Urine Nitrate Negative (Negative) 12/26/23 Unknown Urine Bilirubin Neg (Negative) 12/26/23 Unknown Urine Urobilinogen Neg mg/dL (Negative) 12/26/23 Unknown Ur Leukocyte Esterase 1+ (Negative) H 12/26/23 Unknown Urine RBC 10-15 /hpf (0-2) H 12/26/23 Unknown Urine WBC 10-15 /hpf (0-5) H 12/26/23 Unknown Ur Squamous Epith Cells 5-10 /hpf (0-5) H 12/26/23 Unknown Calcium Oxalate Crystal 0-4 /hpf H 12/26/23 Unknown Amorphous Sediment Not Reportable 12/26/23 Unknown Urine Bacteria 1+ /hpf (NONE) H 12/26/23 Unknown Urine Mucus 2+ /hpf 12/26/23 Unknown Serum Ketones Negative (Negative) 12/26/23 11:01 All radiology interpretation(s) finalized by discharge Discharge Plan Discharge Patient Disposition: Home Clinical Impression: Calculus of kidney Condition: Stable Prescriptions: New hydrocodone-acetaminophen 5-325 mg tablet 1 tab PO Q6H PRN (Reason: pain) Qty: 20 0RF promethazine 25 mg tablet 25 mg PO Q6H PRN (Reason: nausea and vomiting) Qty: 20 0RF cefdinir 300 mg capsule 300 mg PO BID 5 Days Qty: 10 0RF Discontinued hydrocodone-acetaminophen 5-325 mg tablet 1 tab PO Q6H PRN (Reason: pain) Qty: 20 0RF promethazine 25 mg tablet 25 mg PO Q6H PRN (Reason: nausea and vomiting) Qty: 20 0RF No Action progesterone micronized 200 mg capsule 200 mg PO BEDTIME Rx Instructions: ALONG WITH 100MG TO = 300MG TOTAL progesterone micronized 100 mg capsule 100 mg PO BEDTIME Rx Instructions: ALONG WITH 200MG TO = 300MG TOTAL thyroid (pork) [REVENUE COORDINATOR Thyroid] 60 mg tablet 60 mg PO QPM PNV [id number] [] 28 mg iron- 800 mcg Tablet 1 tab PO QPM Discharge Orders: Discharge ED (Routine); Ordered 12/26/23 Ordered By: Markel Oleary Referrals: Jeannie Melchor MD [Primary Care Provider] - Discharge Diet: Usual diet Discharge Activity: Resume usual activity Patient Instructions: Opioid Safety, Pain Management Activity Restrictions/Additional Instructions: Thank you for choosing [facility] for your healthcare needs today. It is very important that you follow up as instructed or that you return to the Emergency Department should you have concerns or if your condition changes or worsens in any way. You were seen today for right flank pain. Because of your we are not able to do a CT limited imaging we did do the ultrasound showed evidence that there may be a stone present but it was not identifiable on the ultrasound. Kidneys have the appearance of medullary sponge kidney although we cannot confirm this just based on the ultrasound. This should be evaluated further with the urologist. Recommend you contact your prototype machine operator for referral to urology as soon as you are able. You are given pain medicines for kidney stone as well as nausea medicines use these as needed. If pain is uncontrollable return to the emergency room Coding Level of Care Code ED Dormitory Counselor for [place] Gardner
--- NOTE | 2023-12-26 11:02 | USR_ITS ---
PROCEDURE INFORMATION: Exam: US Retroperitoneal; Complete; Kidneys and Bladder Exam date and time: 12/26/2023 11:15 AM Age: 23 years old Clinical indication: Pain; Other: RT flank; ; Patient HX: HX of stones; Additional info: R renal nephrolithiasis TECHNIQUE: Imaging protocol: Real-time ultrasound of the retroperitoneum with image documentation. Complete exam focused on the kidneys and bladder. COMPARISON: US renal BI* [id number] 11/09/2023 11:23 AM FINDINGS: Right kidney: Mild pelvocaliectasis. Echogenic renal pyramids suggesting medullary sponge kidney. Left kidney: Normal. No stones. No hydronephrosis. Echogenic renal pyramids suggesting medullary sponge kidney. Urinary bladder: Unremarkable. US/US renal BI* [id number] IMPRESSION: Mild right pelvocaliectasis.
[2023-12-26] MEDS: sodium chloride 0.9% 1,000 ML 999 ML IV (11:08)
[2023-12-26 11:09] LABS: Basophils % 0.4 %; Eosinophils % 0.1 %; Hematocrit 35.6 % (36-47); Lymphocytes # 1.1 10^3/uL (0.8-4.8); Lymphocytes % 10.9 %; Mean Corpuscular HGB Conc 35.4 g/dL (30-55); Mean Corpuscular Hemoglobin 32.4 pg (27-33); Mean Corpuscular Volume 91.5 fl (85-98); Mean Platelet Volume 10.1 fL (7.4-10.4); Monocytes # 0.4 10^3/uL (0.2-0.9); Monocytes % 3.8 %; Neutrophils % 84.3 %; Nucleated Red Blood Cells % 0 %; Platelet Count 233 10^3/cmm (157-399); Red Blood Count 3.89 10^6/uL (3.85-5.65); Red Cell Distribution Width 12.7 % (12.1-15.1); White Blood Count 10.44 10^3/uL (3.29-11.43)
[2023-12-26 11:10] VITALS: RESP 17
[2023-12-26 11:10] LABS: ABG PCO2 29.9 mmHg (35-45); ABG PH Result 7.43 (7.35-7.45); Arterial Blood Gas Hematocrit 35.8 % (37-47); Base Excess ABG -3.5 mmol/L (-2.0-2.0); Blood Gas Allen Test Pos; Blood Gas Operator Identificat MONRO; Blood Gas Sample Site Radial, left; Blood Gas Sample Type Arterial; Carboxyhemoglobin 1.1 %THgb (0.4-20.1); HCO3 ABG 19.8 mmol/L (22-26); Ionized Calcium Level - ABG 1.1 mmol/L (1.1-1.4); Methemoglobin 0.3 % (0.4-1.5); Oxygen Device ROOM AIR; Oxygen Saturation ABG 99.5; PO2 FiO2 Ratio Arterial Blood 528; Potassium Level - ABG 3.4 mmol/L (3.5-5.0); Total Hemoglobin 11.7 g/dL (12-16)
[2023-12-26] MEDS: ondansetron 2 mg/ML SDV 2 mL 4 MG IVP (11:10)
[2023-12-26] MEDS: morphine 4 mg/mL SDV 1 mL IVP (11:10)
[2023-12-26 11:19] LABS: Ketone (Acetest) Serum Negative (Negative)
[2023-12-26 11:20] LABS: HCG, Serum Qual Positive (Negative)
[2023-12-26 11:30] LABS: Alanine Aminotransferase 10 U/L (0-33); Albumin Level 4.1 g/dL (3.5-5.2); Alkaline Phosphatase 48 U/L (35-105); Anion Gap 17.5 (5-19); Aspartate Amino Transferase 15 U/L (0-32); Blood Urea Nitrogen 8 mg/dL (6-20); Calcium 8.5 mg/dL (8.5-10.5); Carbon Dioxide 21 mmol/L (22-29); Chloride 100 mmol/L (98-107); Creatinine Clr Calc Pharmacy 160.6512; Globulin 3.2 g/dL (1.3-4.6); Glomerular Filtration Rate 121.8 mL/min (90-130); Glucose 108 mg/dL (65-115); Osmolality Calculated 279 mOsm/kg (285-295); Potassium 3.5 mmol/L (3.5-5.1); Sodium 135 mmol/L (136-145); Total Bilirubin 0.3 mg/dL (0.15-1.2); Total Protein 7.3 g/dL (6.6-8.7)
[2023-12-26 12:00] VITALS: PULSE 76; O2SAT 96
[2023-12-26 12:44] LABS: Urine Appearance Slightly Cloudy (CLEAR); Urine Color Yellow (Yellow)
[2023-12-26 12:45] LABS: Add Urine Microscopic? YES; Bilirubin Urine Neg (Negative); Blood Urine 3+ (Negative); Glucose Urine UA Norm (Normal); Ketones Urine 2+ (Negative); Leukocyte Esterase Urine 1+ (Negative); Nitrate Urine Negative (Negative); Protein Urine Neg (Negative); Specific Gravity, Urine 1.005 (1.005-1.030); Urobilinogen Urine Neg (Negative); pH Urine 6.5 (5-7)
[2023-12-26 12:47] LABS: Bacteria Urine 1+ /hpf
[2023-12-26 12:48] LABS: Add Urine Culture? Yes; Calcium Oxalate Crystals Urine 0-4 /hpf; Mucus Urine 2+ /hpf
[2023-12-26 13:15] VITALS: BP 104/61; PULSE 88; O2SAT 97
== END 2023-12-26 13:17 | disposition home or self-care (01) ==
PROVIDERS: Emergency Provider Family Medicine; PCP Family Medicine
DX: O99.891 Other specified diseases and conditions complicating pregnancy (principal); N20.0 Calculus of kidney; Z90.49 Acquired absence of other specified parts of digestive tract
CPT/HCPCS: 36600; 76770; 80051; 80053; 81001; 82009; 82330; 82805; 84703; 85025; 87086; 96361; 96374; 96375; 99285; J2270; J2405; J7030